=== PATIENT | male | born 1955 | race Caucasian/White ===

== ENCOUNTER 2022-10-21 09:35 | Emergency (ER) | payer MEDICARE, BC ==
[~2022-10-21] VITALS: Ht 175.3 cm; Wt 80.7 kg
--- NOTE | 2022-10-21 09:50 | NUR ---
RECEIVED PT 67 YRS MALE FROM HOME C/O VOMITING [place]IC[place] COLOR AND STOOL BLACK COLOR FOR 2 DAYS
--- NOTE | 2022-10-21 10:00 | NUR ---
SEEN BY DR. FAJARDO
--- NOTE | 2022-10-21 10:15 | NUR ---
INSERTED ANGO CATHER G 20 ON LA AC BLOOD DROW AND SENT TO LAB UA SENT TO LAB
[2022-10-21] MEDS ORDERED: IV NS 0.9% 1,000 ML BAG IV ONE (10:30)
[2022-10-21] MEDS ORDERED: PANTOPRAZOLE 40 MG VIAL IV ONE (10:30)
[2022-10-21] MEDS ORDERED: PANTOPRAZOLE 40 MG VIAL ONE (10:32)
[2022-10-21 10:48] LABS: BASOPHILS % (AUTO) 0.3 % (0.0-2.0); EOSINOPHILS % (AUTO) 4.6 % (0.0-6.0); HEMATOCRIT 46 % (39-51); HEMOGLOBIN 15.6 g/dL (13.5-17.5); LYMPHOCYTES # (AUTO) 0.8 K/uL (0.8-4.8); LYMPHOCYTES % (AUTO) 26.5 % (20.0-44.0); MEAN CORPUSCULAR HGB CONC 34 g/dl (31.0-36.0); MEAN CORPUSCULAR VOLUME 85 fL (80-96); MONOCYTES # (AUTO) 0.2 K/uL (0.1-1.30); MONOCYTES % (AUTO) 6.7 % (2.0-12.0); NEUTROPHILS # (AUTO) 1.9 K/uL (1.8-8.9); NEUTROPHILS % (AUTO) 61.9 % (43.0-81.0); PLATELET COUNT (AUTO) 216 K/uL (150-450); RED BLOOD CELL COUNT(AUTO) 5.42 MIL/uL (4.5-6.0)
[2022-10-21 10:50] LABS: CALCIUM, SERUM 8.9 mg/dL (8.5-10.1); POTASSIUM 4.1 mmol/L (3.5-5.1)
[2022-10-21 10:57] LABS: ALBUMIN 3.5 g/dL (3.4-5.0); BILIRUBIN,DIRECT 0.2 mg/dL (0.0-0.2); TOTAL PROTEIN, SERUM 7.2 g/dL (6.4-8.2)
--- NOTE | 2022-10-21 11:00 | NUR ---
COVID SWAB SENT TO LAB
--- NOTE | 2022-10-21 11:22 | NUR ---
TO CT SCAN OF HEAD AND ABDOMIN
--- NOTE | 2022-10-21 12:29 | NUR ---
DINESES ANY ACTIVE GI BLEEDING AT THIS TIME
[2022-10-21] MEDS ORDERED: P-EP-92 PO (12:40)
[2022-10-21] MEDS ORDERED: LORATADINE 10 MG TABLET ONE (12:48)
[2022-10-21] MEDS: P-EPHED SUL/LORATADINE (24H) 1 TAB.SR.24H PO SCH ×2 (13:05→13:26)
--- NOTE | 2022-10-21 13:20 | NUR ---
IV removed. Catheter intact and site benign. Pressure and 4x4 applied to site. No bleeding noted.
--- NOTE | 2022-10-21 13:22 | NUR ---
Patient discharged to home in stable condition. Written and verbal after care instructions given. Patient verbalizes understanding of instruction.
[2022-10-21 13:31] VITALS: BP 125/79
== END 2022-10-21 13:32 | disposition home or self-care (01) ==
LOC: ER 09:38
DX: K92.0 Hematemesis (principal); R51.9 Headache, unspecified; K21.9 Gastro-esophageal reflux disease without esophagitis
CPT/HCPCS: 99285; 70450; 96374; 71045; 96361; 74176; 85025; 80048; 83690; 80076; 36415; 86850; J7030; C9113

== ENCOUNTER 2024-09-26 10:24 | Emergency (ER) | payer MEDICARE, BC ==
[~2024-09-26] VITALS: Ht 177.8 cm; Wt 83.5 kg
[~2024-09-26 10:24] MED LIST: P-EP-92 PO
[2024-09-26] MEDS ORDERED: NAPR-1009 PO (10:47)
[2024-09-26 10:55] VITALS: BP 142/90; TEMP 98.9; O2SAT 96
== END 2024-09-26 10:55 | disposition home or self-care (01) ==
LOC: ER 10:25
DX: S86.111A Strain of other muscle(s) and tendon(s) of posterior muscle group at lower leg level, right leg, initial encounter (principal); Z79.899 Other long term (current) drug therapy; W01.0XXA Fall on same level from slipping, tripping and stumbling without subsequent striking against object, initial encounter; Y93.01 Activity, walking, marching and hiking; Y92.89 Other specified places as the place of occurrence of the external cause; Y99.8 Other external cause status